=== PATIENT | male | born 1955 | race African-American/Black ===

== ENCOUNTER 2017-03-25 06:38 | Day surgery (SDC) | payer OTHER ==
[~2017-03-25 06:38] MED LIST: ALPHAGAN P0.15 %; AMLODIPINE5 MG PO; ANUCORT-HC25 MG RE; BACLOFEN10 MG PO; BETIMOL0.5 % OP; BL IBUPROFEN200 MG PO; CYCLOBENZAPR10 MG PO; DEPO-MEDROL80 MG/ML IM; DOXYCYCL HYC100 MG PO; FLEXERIL OR; HYDROXYZ HCL25 MG PO; HYZAAR1 TAB PO; LORTAB 7.5-3251 TAB PO; LOSARTAN/HCT1 TA2 PO; NAPROSYN500 MG PO; SIMVASTATIN20 MG PO; SOLU-MEDROL125 MG IM; TRAVATAN0.0041 OP
== END 2017-03-25 07:10 | disposition home or self-care (01) | DRG 951 ==
LOC: ENDO 06:38
PROVIDERS: ATTEND Surgery
DX: Z12.11 Encounter for screening for malignant neoplasm of colon (principal); Z53.8 Procedure and treatment not carried out for other reasons

== ENCOUNTER 2017-08-09 12:20 | Emergency (ER) | payer OTHER ==
[~2017-08-09] VITALS: Ht 175.3 cm; Wt 95.0 kg
[~2017-08-09 12:20] MED LIST changes: -ALPHAGAN P0.15 %; +ALPHAGAN P0.15 % OS; -BETIMOL0.5 % OP; +BETIMOL0.5 % OU; -TRAVATAN0.0041 OP; +TRAVATAN0.0041 OU
[2017-08-09 13:37] LABS: INFLUENZA A NONE DETECTED (NONE DETECT); INFLUENZA B NONE DETECTED (NONE DETECT)
[2017-08-09] MEDS ORDERED: ZITHROMAX250 MG PO (14:47)
[2017-08-09] MEDS ORDERED: PROVENTIL HFA IN (14:48)
[2017-08-09 14:50] VITALS: BP 149/74
== END 2017-08-09 14:50 | disposition home or self-care (01) | DRG 203 ==
LOC: ED 12:20
PROVIDERS: Emergency Medicine
DX: J20.9 Acute bronchitis, unspecified (principal); F17.210 Nicotine dependence, cigarettes, uncomplicated; I10 Essential (primary) hypertension; R05 Cough; R52 Pain, unspecified

== ENCOUNTER 2017-12-27 13:19 | Inpatient (IN) | payer OTHER ==
[~2017-12-27] VITALS: Ht 175.3 cm; Wt 90.5 kg
[~2017-12-27 13:19] MED LIST changes: +PROVENTIL HFA IN; +ZITHROMAX250 MG PO
--- NOTE | 2017-12-27 13:29 | NUR ---
PT AMBULATED TO ROOM WITH A STEADY GAIT.
[2017-12-27 14:01] LABS: HEMATOCRIT 42.1 % (39.0-50.0); HEMOGLOBIN 14.2 g/dl (14.0-18.0); IMMATURE GRANULOCYTES 0.4 % (0.0-1.0); MEAN CELL VOLUME 90.1 fL CALC (80.0-100.0); MEAN CORPUSCULAR HGB 30.4 pG CALC (26.0-32.0); MEAN CORPUSCULAR HGB CONC 33.7 g/L CALC (32.0-36.0); NEUT# 5.61 thou/uL (1.82-7.42); RED BLOOD COUNT 4.67 mill/uL (4.70-6.10); RED CELL DISTRI WIDTH 13.6 % (11.5-15.5)
[2017-12-27 14:02] LABS: URINE BILIRUBIN - DIPSTICK NEGATIVE (NEGATIVE); URINE BLOOD DIPSTICK TRACE-INTACT (NEGATIVE); URINE COLOR YELLOW; URINE GLUCOSE - DIPSTICK NEGATIVE (NEGATIVE); URINE KETONE NEGATIVE (NEGATIVE); URINE LEUK ESTERASE NEGATIVE (NEGATIVE); URINE NITRITE - DIPSTICK NEGATIVE (Negative); URINE PROTEIN - DIPSTICK NEGATIVE (NEG-TRACE); URINE UROBILINOGEN - DIPSTICK 0.2 E.U./dL (0.2)
--- NOTE | 2017-12-27 14:09 | NUR ---
PT TO RADIOLOGY VIA WC, SPOUSE REMAINS AT BEDSIDE.
[2017-12-27 14:10] LABS: URINE CLARITY CLEAR
[2017-12-27 14:20] LABS: ALBUMIN 5.1 g/dL (3.2-5.0); BILIRUBIN, TOTAL 0.7 mg/dL (0.0-1.4); CREATININE 2.7 mg/dL (0.7-1.3); POTASSIUM 3.8 mmol/l (3.5-5.1); TOTAL PROTEIN 8.6 g/dL (6.3-8.2)
--- NOTE | 2017-12-27 14:26 | NUR ---
CURRENTLY IN RADIOLOGY AGAIN, MEDICATED ORDERED PRIOR TO TRANSPORT, SPOUSE AT BEDSIDE
--- NOTE | 2017-12-27 14:41 | NUR ---
RECENT LAB WORK REQUESTED FROM [facility] PER DR.BERNAHRT ESPINAL
--- NOTE | 2017-12-27 15:22 | NUR ---
REPORT RECEIVED FROM ELOY JENKINS. CARE ASSUMED.
--- NOTE | 2017-12-27 15:30 | NUR ---
UNABLE TO RECONCILE MEDICATION LIST AT THIS TIME. SIGNIFICANT OTHER WILL ASKED TO BRING MEDICATIONS.
--- NOTE | 2017-12-27 15:52 | NUR ---
PT AWARE OF PENDING ADMIT AND WAIT TIME. CALL AL[facility]Z WITHIN REACH, WILL CONTINUE TO MONITOR.
--- NOTE | 2017-12-27 16:30 | NUR ---
PO FLUIDS OFFERED, PT REFUSED. PT AWARE OF PENDING ADMIT AND WAIT TIME. CALL ALVAREZ WITHIN REACH.
--- NOTE | 2017-12-27 17:00 | NUR ---
400 MLS OF MAO COLORED URINE EMPTIED FROM URINAL. PT DENIES ANY NEEDS AT THIS TIME.
--- NOTE | 2017-12-27 17:15 | NUR ---
Admission Note Report Given to: SBAR PRINTED TO FLOOR Transported by: Wheelchair X Stretcher Transported with: X Nurse Transporter X Patent [id number]
--- NOTE | 2017-12-27 17:21 | NUR ---
PT CAME FROM ER VIA WHEELCHAIR BY ELOY LOPES . STAND BY ASSIST TO SCALE AND THEN TO BED. SAFETY PRECAUTIONS REINFORCED AND CALL LIGHT IN REACH.
[2017-12-27 17:50] VITALS: BP 127/74
--- NOTE | 2017-12-27 18:00 | NUR ---
ASSESSMENT DONE RESPS EVEN AND UNLABORED. NS 125ML/HR INFUSING WELL. PT DENIES PAIN AT THIS TIME. CALL LIGHT IN REACH.
--- NOTE | 2017-12-27 20:00 | NUR ---
PATIENT RESTING IN BED-AWAKE ALERT AND ORIENTEDX3. PATIENT ATE WELL FOR DINNER. IV SITE TO LEFT FOREARM INTACT WITH IVF PATENT AND INFUSING AT 125CC/HR. SITE APPEARS HEALTHY AT THIS TIME. PATIENT MIN ASSIST TO BR-DENIES ANY DIZZINESS. VOIDED 300CC OF CLEAR YELLOW URINE. BACK TO BED. PATIENT PROVIDED WITH PO FLUIDS. SAFETY PRECAUTIONS REINFORCED. CALL LIGHT IN REACH. WILL CONT TO MONITOR.
[2017-12-27 20:30] VITALS: BP 134/73
--- NOTE | 2017-12-28 | NUR ---
APPEARS SLEEPING AT THIS TIME WITH HOB ELEVATED AND EYES CLOSED. IVF PATENT AND INFUSING AT 125CC/HR. CALL LIGHT IN REACH. WILL CONT TO MONITOR.
--- NOTE | 2017-12-28 04:43 | NUR ---
PATIENT RESTING IN BED AT THIS TIME POSITIONED ON LEFT SIDE AND APPEARS SLEEPING WITH EYES CLOSED. RESP ARE EVEN AND UNLABORED. IVF PATENT AND INFUSING AT 125CC/HR. CALL LIGHT IN REACH. WILL CONT TO MONITOR.
[2017-12-28 04:45] VITALS: BP 130/77
[2017-12-28 06:17] LABS: HEMATOCRIT 38.7 % (39.0-50.0); MEAN CELL VOLUME 91.7 fL CALC (80.0-100.0); MEAN CORPUSCULAR HGB 30.8 pG CALC (26.0-32.0); MEAN CORPUSCULAR HGB CONC 33.6 g/L CALC (32.0-36.0); RED BLOOD COUNT 4.22 mill/uL (4.70-6.10); RED CELL DISTRI WIDTH 13.5 % (11.5-15.5)
[2017-12-28 06:30] LABS: CHOLESTEROL HDL RATIO 3.4 (<4.4 (CALC)); MAGNESIUM 2.3 mg/dL (1.6-2.3); POTASSIUM 4.3 mmol/l (3.5-5.1)
[2017-12-28 06:31] LABS: CREATININE 1.7 mg/dL (0.7-1.3)
[2017-12-28 08:30] VITALS: BP 144/74
--- NOTE | 2017-12-28 08:30 | NUR ---
PT IS RELAXING IN BED WITH N O DISTRESS NOTED. IV SITE IS FREE FROM REDNESS OR EDEMA. HR IS REG,PULSES ARE STRONG X4, ABD IS SOFT WITH ACTIVE BS. CONTINUE TO OSBERVE AND MONITOR.
[2017-12-28] MEDS ORDERED: METFORMIN500 M1 PO (11:35)
--- NOTE | 2017-12-28 12:30 | NUR ---
PT IS VISITING WITH FAMILY NO DISTRESS N OTED. IV SITE IS FREE FROM REDNESS OR EDEMA. CONTINUE TO OSBERVE AND MONITOR.
[2017-12-28] MEDS ORDERED: NORVASC PO (12:35)
[2017-12-28 16:15] VITALS: BP 137/87
--- NOTE | 2017-12-28 16:30 | NUR ---
PT IS RELAXING IN BED WITH NO DISTRESS NOTED. IV SITE IS FREE FROM REDNESS OR EDEMA. CONTINUE TO OSBERVE AND MONITOR.
[2017-12-28 19:12] VITALS: BP 120/67
--- NOTE | 2017-12-28 19:14 | NUR ---
PATIENT RESTING IN BED-AWAKE ALERT AND ORIENTEDX3. DENIES ANY COMPLAINTS AT THIS TIME-STATES THAT HE IS FEELING BETTER. IVF NS PATENT AND INFUSING AT 125CC/HR VIA LEFT FOREARM SITE-APPEARS HEALTHY AT THIS TIME. PATIENT SB ASSIST TO BR-STEADY ON HIS FEET. VOIDED 600CC OF CLEAR YELLOW URINE. BACK TO BED, SAFETY PRECAUTIONS REINFORCED. CALL LIGHT IN REACH. WILL CONT TO MONITOR.
--- NOTE | 2017-12-28 22:54 | NUR ---
PATIENT CONT TO VOID QS CLEAR YELLOW URINE IN URINAL. DENIES ANY DIZZINESS WHEN OOB AMBULATING. IVF PATENT AND CONT AT 125CC/HR VIA LEFT FOREARM. CALL LIGHT IN REACH. WILL CONT TO MONITOR.
--- NOTE | 2017-12-29 00:08 | NUR ---
PATIENT RESTING IN BED AT THIS TIME WITH NO COMPLAINTS. IVF PATENT AND INFUSING AT 125CC/HR VIA LEFT FOREARM IV SITE. CONT TO VOID YELLOW URINE IN URINAL. CALL LIGHT IN REACH. WILL CONT TO MONITOR.
--- NOTE | 2017-12-29 00:15 | NUR ---
PATIENT RESTING IN BED-STATES THAT HE HAD 2 MORE DIAARHEA STOOLS BUT STATES THAT IT WAS NOT BACK IT HAS BEEN. IVF NS HUNG VIA RIGHT WRIST SITE AT 75CC/HR ORDERED. SITE REMAINS HEALTHY. CALL LIGHT IN REACH. WILL CONT TO MONITOR.
[2017-12-29 04:19] VITALS: BP 120/72
--- NOTE | 2017-12-29 04:42 | NUR ---
PATIENT RESTING IN BED WITH NO COMPLAINTS AT THIS TIME. VS TAKEN AND RECORDED. CALL LIGHT IN REACH. WILL CONT TO MONITOR.
[2017-12-29 04:56] LABS: IMMATURE GRANULOCYTES 0.2 % (0.0-1.0); MEAN CELL VOLUME 91.4 fL CALC (80.0-100.0); MEAN CORPUSCULAR HGB 30.5 pG CALC (26.0-32.0); MEAN CORPUSCULAR HGB CONC 33.3 g/L CALC (32.0-36.0); RED BLOOD COUNT 3.94 mill/uL (4.70-6.10); RED CELL DISTRI WIDTH 13.2 % (11.5-15.5)
[2017-12-29 05:09] LABS: ANION GAP 12 (6-22 (CALC)); BUN 21 mg/dL (8-23); BUN/CREATININE RATIO 17 (12-20 (CALC)); CARBON DIOXIDE 27 mmol/l (22-30); CHLORIDE 103 mmol/l (95-108); CREATININE 1.2 mg/dL (0.7-1.3); GFR > 60 ML/MIN (>=60 (CALC)); GFR FOR AFR.AMER. > 60 ML/MIN (>=60 (CALC)); POTASSIUM 4.3 mmol/l (3.5-5.1); SODIUM 138 mmol/l (137-146)
--- NOTE | 2017-12-29 07:00 | NUR ---
REPORT RECEIVED BY LEONEL. PT IS RESTING IN BED WITH NO S/S OF DISTRESS NOTED. PT DENIES NEEDS AT THIS TIME. CALL LIGHT IN REACH.
[2017-12-29 07:29] VITALS: BP 149/77
--- NOTE | 2017-12-29 08:01 | NUR ---
ASSESSMENT DONE . RESPS EVEN AND UNLABORED. PT DENIES PAIN AT THIS TIME. NS 125ML/HR INFUSING WELL. SAFETY PRECAUTIONS REINOFORCED AND CALL LIGHT IN REACH.
[2017-12-29 08:05] VITALS: BP 149/77
--- NOTE | 2017-12-29 12:00 | NUR ---
PT IS SITTING IN CHAIR EATING HIS LUNCH WITH NO S/S OF DISTRESS NOTED. PT DENIES NEEDS AT THIS TIME. CALL LIGHT IN REACH.
--- NOTE | 2017-12-29 12:40 | NUR ---
Discharge instructions given. Patient verbalizes understanding of same. Discharged in stable condition via Wheelchair to Home with staff. All belongings sent with pt.
== END 2017-12-29 12:40 | disposition home or self-care (01) | DRG 684 ==
LOC: ED 13:19 → ED-I 14:43 → ED 15:08 → MS2 15:09
PROVIDERS: Emergency Medicine; Nurse Practitioner Family; ADMIT Internal Medicine; ATTEND Internal Medicine
PROC: 3E0234Z Introduction of Serum, Toxoid and Vaccine into Muscle, Percutaneous Approach (ICD-10-PCS; principal; 2017-12-29)
DX: N17.9 Acute kidney failure, unspecified (principal); E78.5 Hyperlipidemia, unspecified; I10 Essential (primary) hypertension; F17.210 Nicotine dependence, cigarettes, uncomplicated; Z23 Encounter for immunization

== ENCOUNTER 2018-10-25 09:51 | Emergency (ER) | payer OTHER, MEDICAID ==
[~2018-10-25] VITALS: Ht 175.3 cm; Wt 100.0 kg
[~2018-10-25 09:51] MED LIST changes: +METFORMIN500 M1 PO; +NORVASC PO
[2018-10-25] MEDS ORDERED: NAPROSYN500 MG PO (10:17)
[2018-10-25 10:20] VITALS: BP 150/89
== END 2018-10-25 10:20 | disposition home or self-care (01) | DRG 563 ==
LOC: ED 09:51
DX: S83.91XA Sprain of unspecified site of right knee, initial encounter (principal); I10 Essential (primary) hypertension; F17.200 Nicotine dependence, unspecified, uncomplicated; V49.50XA Passenger injured in collision with unspecified motor vehicles in traffic accident, initial encounter